=== PATIENT | male | born 1975 | race Caucasian/White ===

== ENCOUNTER 2023-06-06 09:44 | Emergency (ER) | payer OTHER, SELFPAY ==
[2023-06-06] VITALS (15 sets, daily range): BP systolic 124–179; BP diastolic 76–100; PULSE 59–89; RESP 11–114; TEMP 37.1; O2SAT 92–100
--- NOTE | ~2023-06-06 | XR_ITS ---
EXAMINATION: XR chest 2V DATE: 06/06/2023 10:16 INDICATION: Chest tightness. TECHNIQUE: Frontal and lateral views of the chest were obtained. COMPARISON: None. FINDINGS: There is mild atelectasis in lingula. No pleural effusion or pneumothorax. The heart size i s normal. IMPRESSION: 1. Mild atelectasis in lingula. Reviewed, dictated and finalized at location A.
[2023-06-06 09:54] LABS: Glucose Point of Care 108 mg/dl (65-105)
--- NOTE | 2023-06-06 09:54 | ECG_ITS ---
Measurements Intervals [place] Rate: 63 P: 25 SC: 159 QRS: 19 QRSD: 92 T: 48 QT: 404 QTc: 415 Interpretive Statements SINUS RHYTHM NORMAL ECG NO PREVIOUS ECG AVAILABLE FOR COMPARISON Electronically Signed On 06-06-2023 13:40:04 CDT by Singh Palacios D.O.
--- NOTE | 2023-06-06 09:54 | ED.WEAKNESS ---
HPI - Weakness General Chief complaint: Weakness Stated complaint: weakness, light headed Time Seen by Provider: 06/06/23 09:54 Source: patient Mode of arrival: ambulatory Limitations: no limitations History of Present Illness HPI Narrative: Patient is 48-year-old male who presents the ED with weakness and shakiness. Patient reports he went to work like usual this morning, but began feeling unwell while at work. States he felt weak, mildly lightheaded, had chills/shakiness, chest tightness, mild nausea. His co-worker then brought into the ED. Patient states she feels slightly better currently, still feels somewhat shaky and weak overall. Patient ate and drank normally this morning. Denies current chest tightness or chest pain. Denies vomiting. Denies SOB. Denies known fevers, cough, cold symptoms, syncope, focal weakness, numbness. Related Data Allergies Allergy/AdvReac Type Severity Reaction Status Date / Time No Known Allergies Allergy Verified 06/06/23 10:32 Review of Systems Review of Systems: CONSTITUTIONAL: Reports chills/shakiness, denies fevers. ENT: Denies rhinorrhea, congestion, sore throat. CARDIOVASCULAR: See HPI. RESPIRATORY: Denies cough or dyspnea. GASTROINTESTINAL: See HPI. NEUROLOGIC: See HPI. All systems reviewed & are unremarkable except as noted in HPI and below Exam Narrative: GENERAL: Well appearing, obese with BMI of 32.7, non-toxic, in no acute distress. HEAD: Normocephalic, atraumatic. RESPIRATORY: Airway patent, respirations nonlabored. Clear to auscultation bilaterally, no rales, rhonchi, wheezing. CARDIOVASCULAR: Regular rate and rhythm without murmurs, rubs, or gallops. ABDOMINAL: Soft, no tenderness throughout abdomen, nondistended. Normoactive BS. MUSCULOSKELETAL: Moves all extremities. No gross deformities. No lower extremity edema. SKIN: Warm, dry, normal color. NEURO: A&O X3. Speech clear. Cranial nerves II-XII grossly intact. Intermittently rigorous. No focal deficits. Moves all extremities equally. Strength 5/5 in upper and lower extremities bilaterally. PSYCHIATRIC: Appropriate mood and affect. Normal interaction. Course Vital Signs Vital signs: Vital Signs Temperature 98.8 F 06/06/23 09:49 Pulse Rate 85 06/06/23 09:49 Respiratory Rate 11 L 06/06/23 09:49 Blood Pressure 179/95 H 06/06/23 09:49 Pulse Oximetry 100 06/06/23 09:49 Oxygen Delivery Room Air 06/06/23 09:49 Temperature 98.8 F 06/06/23 09:49 Pulse Rate 74 06/06/23 14:03 Respiratory Rate 18 06/06/23 14:03 Blood Pressure 124/77 06/06/23 14:03 Pulse Oximetry 97 06/06/23 14:03 Oxygen Delivery Room Air 06/06/23 09:49 MDM - Weakness MDM Narrative Medical decision making narrative: Patient presented to ED with weakness, lightheadedness, general malaise, shakiness, chest tightness. Vital signs are stable upon arrival. Patient is afebrile, though appears mildly rigorous on exam. No focal weakness or deficits appreciated on exam. EKG is without ST changes. Baseline troponin is negative. Laboratory studies show mild leukocytosis of 11.0, CMP with potassium of 3.0. Oral and IV replacement ordered. Magnesium WNL. Stable kidney function. Stable blood glucose on CMP. Lactic acid did result elevated at 2.9. Fluids ongoing. Urinalysis is negative. Viral swabs were negative. Chest x-ray is clear. 3Hr troponin resulted undetectable. Patient w/o any ongoing chest discomfort/tightness. Repeat lactic acid normalized with fluid administration. Low suspicion for sepsis at this time. Patient otherwise not meeting SIRS criteria. VS have remained stable. Patient feeling significantly better w/ supportive therapy in the ED and fluids. No further weakness or lightheadedness. He does mention having diarrhea for the last couple of days, which could explain the hypokalemia. He denies any abdominal pain, no tenderness on exam to suggest need for further labs or imaging at this time.
[2023-06-06 10:05] LABS: Basophils Absolute Auto 0.1 K/mm3 (0.0-0.1); Basophils Percent Auto 0.5 % (0.2-1.2); Eosinophils Absolute Auto 0.2 K/mm3 (0-0.3); Hematocrit 46.1 % (42.0-52.0); Hemoglobin 15.3 g/dL (14.0-18.0); Immature Granulocyte Absolute 0.07 K/mm3 (0.00-0.031); Immature Granulocyte Percent A 0.6 % (0-0.5); Lymphocytes Absolute Auto 4.34 K/mm3 (0.9-3.2); Lymphocytes Percent Auto 39.3 % (18.3-44.2); Mean Corpuscular HGB Conc 33.2 g/dl (32-36); Mean Corpuscular Hemoglobin 31.4 pg (26-34); Mean Corpuscular Volume 94.5 fl (80-100); Mean Platelet Volume 9.8 fl (7.4-10.4); Monocytes Absolute Auto 1.1 K/mm3 (0.1-0.6); Monocytes Percent Auto 9.6 % (2.6-8.5); Neutrophils Absolute Auto 5.3 K/mm3 (1.3-6.7); Platelet Count Result 248 k/mm3 (150-375); Red Blood Count 4.88 M/mm3 (4.6-6.20); Red Cell Distribution Width 12.3 % (11.5-14.5)
[2023-06-06 10:16] LABS: Alanine Aminotransferase 26 U/L (6-50); Albumin Level 4.6 g/dL (3.5-5.1); Alkaline Phosphatase 63 U/L (38-126); Anion Gap 11 mmol/L (8-16); Aspartate Amino Transferase 24 U/L (17-59); Bilirubin,Total 0.7 mg/dL (0.2-1.3); Blood Urea Nitrogen 17 mg/dL (9-20); Calcium 9.2 mg/dL (8.4-10.2); Carbon Dioxide 24 mmol/L (22-30); Chloride 101 mmol/L (98-107); Estimated CRCL calculation 113 ml/min; Estimated Glomerular Filt Rate > 60; Glucose 117 mg/dL (65-110); Sodium 136 mmol/L (137-145)
[2023-06-06] MEDS: SODIUM CHLORIDE 0.9% IV 1,000 ML 999 ML IV CONT ×2 (10:31→11:33)
[2023-06-06] MEDS: POTASSIUM CHLORIDE 20 MEQ ER TABLET 40 MEQ PO (10:31)
[2023-06-06] MEDS: KCL 20 MEQ/SW 100 ML 100 ML 50 MEQ IVPB (10:39)
[2023-06-06 11:11] LABS: Magnesium 2.4 mg/dL (1.6-2.3)
[2023-06-06 11:15] LABS: Lactic Acid Reflex 2.9 mmol/L (0.7-2.0)
[2023-06-06 11:23] LABS: Troponin I < 0.012 ng/mL (0.000-0.034)
[2023-06-06 11:41] LABS: Influenza A QL RT-PCR Negative (Negative); Influenza B QL RT-PCR Negative (Negative); RSV RNA, RT-PCR Negative (Negative); SARS-CoV-2 RNA PCR Negative (Negative)
[2023-06-06 11:43] LABS: Appearance Urine Clear (Clear); Bilirubin Urine Negative (Negative); Blood Urine Negative (Negative); Color Urine Yellow (Yellow); Glucose Urine UA Negative (Negative); Ketones Urine Negative (Negative); Leukocyte Esterase Ur Negative LEU/UL (Negative); Nitrate Urine Negative (Negative); Protein Urine Negative (Negative); Specific Grav Ur 1.008 (1.001-1.035); Urobilinogen Urine 0.2 mg/dL (<2.0); pH Urine 7.5 (5.0-9.0)
[2023-06-06 11:48] LABS: Add Urine Microscopic? NO
[2023-06-06 13:25] LABS: Lactic Acid Reflex 1.5 mmol/L (0.7-2.0)
[2023-06-06 13:37] LABS: Troponin I < 0.012 ng/mL (0.000-0.034)
[2023-06-06 14:03] LABS: Reflex Lactic Acid Yes or No Add Lactic
--- NOTE | 2023-06-06 15:09 | ECG_ITS ---
Measurements Intervals [place] Rate: 79 P: 42 NH: 170 QRS: 31 QRSD: 102 T: 49 QT: 398 QTc: 457 Interpretive Statements SINUS RHYTHM BASELINE ARTIFACT- II, III, AVR, AVL ,AVF NORMAL ECG NO PREVIOUS ECG AVAILABLE FOR COMPARISON Electronically Signed On 06-06-2023 15:18:01 CDT by Singh Palacios D.O.
== END 2023-06-06 14:04 | disposition home or self-care (01) ==
PROVIDERS: Emergency Medicine; Emergency Provider Physician Assistant; PCP Internal Medicine
DX: E86.0 Dehydration (principal); R53.1 Weakness; E87.6 Hypokalemia; R42 Dizziness and giddiness; Z20.822 Contact with and (suspected) exposure to COVID-19
CPT/HCPCS: 36415; 71046; 80053; 81003; 82948; 83605; 83735; 84484; 85025; 87637; 93005; 96361; 96365; 96366; 99284; A9270; J3480; J7030

== ENCOUNTER 2024-07-16 13:24 | Outpatient (CLI) | payer OTHER, SELFPAY ==
--- NOTE | ~2024-07-16 | CT_ITS ---
CT Scan of the Chest without Contrast: Clinical Indication: Pulmonary nodule Technique: Contiguous sections were acquired throughout the chest without intravenous contrast. Dose reduction technique was used on this scan by utilizing automated exposure control and iterative recon struction technique. The dose-length product (DLP) was 220.81 mGy-cm. Findings: There is no evidence of any significant mediastinal, hilar or axillary lymphadenopathy. The mediastin al soft tissues appear normal. There is no evidence of pleural or pericardial effusion. 5 mm right lower lobe pulmonary nodule present (axial image 79). Images through the upper abdomen reveal no abnormalities. Impression: 5 mm right lower lobe pulmonary nodule. According to Fleischner Society criteria, for a low-risk thiago ent, no further follow-up required. For a high-risk patient, consider 12 month follow-up CT. Reviewed, dictated and finalized at [facility]. Impression: 5 mm right lower lobe pulmonary nodule. According to Fleischner Society criteri a, for a low-risk patient, no further follow-up required. For a high-risk patie nt, consider 12 month follow-up CT.
== END 2024-07-16 13:25 | disposition home or self-care (01) ==
PROVIDERS: PCP Internal Medicine; Visit Provider Internal Medicine
DX: R91.1 Solitary pulmonary nodule (principal)
CPT/HCPCS: 71250